=== PATIENT | male | born 2000 | race Caucasian/White ===

== ENCOUNTER 2020-03-11 12:34 | Outpatient (REF) | payer MEDICAID, SELFPAY ==
--- NOTE | 2020-03-11 12:44 | XR_ITS ---
EXAMINATION: THORACIC AND LUMBAR SPINE. CLINICAL INFORMATION: Back pain. COMPARISON: Lumbar spine 12/20/2018 TECHNIQUE: 3 views dorsal spine and 5 views of lumbar spine. FINDINGS: DORSAL SPINE: There is maintained thoracic kyphosis. The vertebral heights, alignment and disc heights are normal. There is no visible acute fracture, dislocation or subluxation. The para vertebral soft tissues are normal. LUMBAR SPINE: There is normal lumbar lordosis. The vertebral heights, alignment and disc heights are normal. There is is no subluxation seen on flexion-extension views. There is no visible acute fracture, dislocation or lytic process seen. The soft tissues are normal. XR/XR lumbar spine 6V w bending IMPRESSION: Unremarkable dorsal spine exam. No acute fracture or dislocation. No subluxation seen on flexion-extension views.
--- NOTE | 2020-03-11 12:44 | XR_ITS ---
EXAMINATION: THORACIC AND LUMBAR SPINE. CLINICAL INFORMATION: Back pain. COMPARISON: Lumbar spine 12/20/2018 TECHNIQUE: 3 views dorsal spine and 5 views of lumbar spine. FINDINGS: DORSAL SPINE: There is maintained thoracic kyphosis. The vertebral heights, alignment and disc heights are normal. There is no visible acute fracture, dislocation or subluxation. The para vertebral soft tissues are normal. LUMBAR SPINE: There is normal lumbar lordosis. The vertebral heights, alignment and disc heights are normal. There is is no subluxation seen on flexion-extension views. There is no visible acute fracture, dislocation or lytic process seen. The soft tissues are normal. XR/XR thoracic spine 2V IMPRESSION: Unremarkable dorsal spine exam. No acute fracture or dislocation. No subluxation seen on flexion-extension views.
== END 2020-03-11 12:35 | disposition home or self-care (01) ==
LOC: HO.XRAY 12:34
PROVIDERS: Visit Provider Physician Assistant Medical
DX: M54.5 Low back pain (principal); M54.6 Pain in thoracic spine
CPT/HCPCS: 72070; 72114

== ENCOUNTER 2020-06-17 09:30 | Outpatient (REF) | payer MEDICAID, SELFPAY ==
[2020-06-17 09:52] LABS: COVID-19 Test Positive (Negative); IDNOW Serial# 55D5AD1C
== END 2020-06-17 09:31 | disposition home or self-care (01) ==
LOC: HO.LAB 09:30
PROVIDERS: Visit Provider Internal Medicine
DX: Z20.822 Contact with and (suspected) exposure to COVID-19 (principal)
CPT/HCPCS: 36415; 87635; C9803

== ENCOUNTER 2020-06-24 12:13 | Outpatient (REF) | payer MEDICAID, SELFPAY ==
[2020-06-24 12:36] LABS: COVID-19 Test Positive (Negative)
== END 2020-06-24 12:14 | disposition home or self-care (01) ==
LOC: HO.LAB 12:13
PROVIDERS: Visit Provider Internal Medicine
DX: Z20.822 Contact with and (suspected) exposure to COVID-19 (principal)
CPT/HCPCS: 36415; 87635; C9803

== ENCOUNTER 2021-06-26 10:32 | Emergency (ER) | payer MEDICAID, SELFPAY ==
--- NOTE | ~2021-06-26 | XR_ITS ---
EXAMINATION: XR LUMBOSACRAL SPINE CLINICAL INFORMATION: Low back pain after heavy lifting at work. COMPARISON: Lumbar spine radiographs dated 12/20/2018. TECHNIQUE: Three views of the lumbosacral spine. FINDINGS: The vertebral bodies and posterior elements are normal. The disc spaces are preserved and the vertebral alignment is normal. The paraspinal soft tissues are normal. XR/XR lumbar spine 2-3V IMPRESSION: Unremarkable lumbar spine.
--- NOTE | ~2021-06-26 | XR_ITS ---
EXAMINATION: XR RIBS, LEFT CLINICAL INFORMATION: Left rib pain status post lifting injury. COMPARISON: 12/13/2018 chest radiograph. TECHNIQUE: 3 views of the left ribs were obtained along with a PA view of the chest. A skin marker overlies the left eighth rib. FINDINGS: Lungs are clear. No consolidation, pneumothorax, or pleural effusion. The cardiomediastinal silhouette and pulmonary vasculature are normal. Osseous structures are unremarkable. Ribs are intact. No fractures are identified. XR/XR ribs LT min 3V w CXR1V IMPRESSION: Unremarkable examination.
[2021-06-26 10:38] VITALS: BP 127/67; PULSE 71; RESP 18; TEMP 36.6; O2SAT 99; BMI 21.7
[2021-06-26] MEDS: Cyclobenzaprine HCl 10 MG TABLET PO (10:52)
[2021-06-26] MEDS: NaPROXEN 500 MG TABLET PO (10:52)
--- NOTE | 2021-06-26 11:44 | ED.BACK ---
HPI - Back Pain/Injury General Chief Complaint: Back Pain/Injury Stated Complaint: Back pain/work inj Time Seen by Provider: 06/26/21 10:43 Source: patient and family (Significant other) Mode of arrival: ambulatory Limitations: language barrier (Citizen [place]-speaking) History of Present Illness HPI Narrative: 20-year-old male who is Citizen [place]speaking presenting to the ED with his significant other at bedside with complaints of upper to lower back pain/left-sided rib cage pain after he was heavy lifting boxes of salami while he was at work yesterday. He denies any actual fall. He denies any other injuries complaints or concerns at this time. MD elicited complaint: back pain, back injury and other (Left rib cage pain/injury) Pertinent past history: recent trauma (Heavy lifting at work) Onset (ago): day(s) (Started yesterday while at work) Timing: constant and progressively worsening Severity: moderate Similar Symptoms Previously: No Quality: aching and spasming Location: lumbar spine, thoracic spine and left upper back (Rib cage aspect) Radiation: none Exacerbating factors: movement, walking, deep breaths, coughing/sneezing and lifting Relieving factors: none Context: while lifting and turning/twisting Associated symptoms: denies other symptoms Work related injury: Yes Related Data Previous Rx's Medication Instructions Recorded cyclobenzaprine 10 mg tablet 10 mg PO Q8H PRN #14 tab 06/26/21 naproxen 500 mg tablet 500 mg PO BID PRN #14 tab 06/26/21 Allergies Allergy/AdvReac Type Severity Reaction Status Date / Time No Known Allergies Allergy Unverified 11/08/19 18:59 [No Known Allergies*] Review of Systems Review of Systems: Constitutional : No trauma, No Weight loss, No Fever, No Chills, ENT/Mouth : No Hearing loss, No Ear Pain, No Nasal Congestion, No Sinus Pain, No Hoarseness, No sore throat, No Rhinorrhea, No Swallowing Difficulty Cardiovascular : No Chest Pain, No SOB Respiratory : No Cough, No Dyspnea Gastrointestinal : No Nausea, No Vomiting, No Diarrhea, No abdominal Pain, No Hematochezia, No Melena Genitourinary : No Dysuria, No Urinary Frequency, No Hematuria, No Urinary or Bowel Incontinence/retention Musculoskeletal : + Back/left rib cage pain, No neck pain, No joint stiffness, No joint swelling Skin : No Skin Lesions, No rash or signs of infection Neuro : No Weakness, No radiation, No Numbness, No Paresthesias, No headache, no loss of bowel or bladder incontinence, no saddle anesthesia, Focal weakness, No radiation Denies history of IV drug usage. Yes all other systems are reviewed and are negative [facility] Past Medical History Attestation statement: The following information was validated with the patient. Medical History No known health problems Social History Social History Advance Directives: No Advance Directives Information Provided: Yes Physical Exam Vital Signs: Vital Signs: Last Vital Signs Temp 98 F 06/26/21 10:38 Pulse 71 06/26/21 10:38 Resp 18 06/26/21 10:38 BP 127/67 06/26/21 10:38 Pulse Ox 99 06/26/21 10:38 BMI result Body Mass Index 21.7 vital signs have been reviewed as normal and appeared to be correct. Blood pressure normal. Heart rate normal. Respiration rate normal. Temperature normal. Oxygen saturation normal. Appearance: Alert. Oriented X3. No acute distress. Head: Normal external exam. Normocephalic. Atraumatic. No Vaughan signs noted. No raccoon eyes noted Eyes: PERRLA. EOMI. Conjunctiva and sclera normal. Eyelids normal. ENT: EAC normal. TM's Normal. Pharynx normal. Uvula midline. Moist mucous membranes. No trismus noted. No drooling noted. No muffled voice noted. Neck: Normal inspection. Neck supple. FROM. No adenopathy. Thyroid Normal. No meningeal signs. No neck mass noted. CVS: Normal heart rate and rhythm. Heart sound normal. No murmurs noted. Pulses normal throughout. Respiratory: No respiratory distress. Painless inspiration. Breath sounds normal. No wheezes/rales/rhonchi noted. Chest tenderness to palpation to the left lateral/posterior rib cage. No signs of trauma noted. Not consistent with flail chest. No crepitus is noted. No rashes are noted. No accessory muscle usage noted or decreased air movement noted. Abdomen: Soft and nontender. Bowel sounds normal in all 4 quadrants. No distention noted. No organomegaly noted. No visible injury noted. Back: No CVA tenderness. Full range of motion noted. No obvious deformities, or edema. Mild para-spinal muscular tenderness from thoracic to lumbar region to coccyx. Full ROM in back and lower extremities. 5/5 strength hip extension/flexion, abduction, adduction. Mild Lumbar pain with hip flexion against resistance. Straight leg raise test negative on right; Straight leg raise test negative on left; Reflexes normal ankle and knee bilaterally; EHL motor strength normal bilaterally. No rashes/lesion/induration/fluctuance or signs infection noted. Skin: Skin warm and dry. Normal skin color. Normal skin turgor. No rashes/lesions/lacerations noted. Extremities: Extremities exhibit normal range of motion. Extremities nontender. Neuro: Oriented X 3. No motor deficit. No sensory deficit. Reflexes normal. Patient has a normal steady gait. Course Course Course Narrative: Pt c likely muscular pain, but could be herniated disc. Neuro exam shows no deficits. Not c/w AAA/epidural abscess/dissection.No high risk Hx (Incont, fever, immunosupp, recent surgery/LP, coag, signif trauma, wt loss, puls mass, hx/o Ca, TB, or IVDU) to warrant MRI/CT today. Not c/w Pyelo/UTI/kidney stone/spinal fx. Not cauda equina syndrome. I do not believe any imaging is indicated although patient requesting x-rays therefore x-ray of left ribs/lumbar spine ordered at this time. If negative will DC home with symptomatic treatment instructions return if any new or worsening symptoms to follow up with PCP/[facility]. Patient understands agrees with this plan. MDM - Back Pain/Injury Medical Records Attestation: I reviewed the patient's medical records. Imaging Data Lumbar spine and rib/PA chest x-ray: Attestation: I personally reviewed and interpreted this imaging study as follows: Radiologist's impression: FINDINGS: The vertebral bodies and posterior elements are normal. The disc spaces are preserved and the vertebral alignment is normal. The paraspinal soft tissues are normal. XR/XR lumbar spine 2-3V IMPRESSION: Unremarkable lumbar spine. FINDINGS: Lungs are clear. No consolidation, pneumothorax, or pleural effusion. The cardiomediastinal silhouette and pulmonary vasculature are normal. Osseous structures are unremarkable. Ribs are intact. No fractures are identified. XR/XR ribs LT min 3V w CXR1V IMPRESSION: Unremarkable examination. Discharge Plan Discharge Clinical Impression: Strain of lumbar region, Thoracic back pain, Chest wall muscle strain, Encounter for assessment of work-related causation of injury Patient Disposition: Home, Self-Care Instructions: Muscle Strain (DC), Return to Work Instructions (ED) Prescriptions: New naproxen 500 mg tablet 500 mg PO BID PRN (Reason: pain) Qty: 14 0RF cyclobenzaprine 10 mg tablet 10 mg PO Q8H PRN (Reason: Muscle spasm) Qty: 14 0RF Referrals: [facility] [Provider Group] - [facility] day Center[facility] [Primary Care Provider] - Stand Alone Forms: Work/School Release Print Language: Citizen [place]
== END 2021-06-26 16:49 | disposition home or self-care (01) ==
PROVIDERS: Emergency Provider Emergency Medicine Emergency Medical Services
DX: S39.012A Strain of muscle, fascia and tendon of lower back, initial encounter (principal); S29.011A Strain of muscle and tendon of front wall of thorax, initial encounter; M54.6 Pain in thoracic spine; X50.0XXA Overexertion from strenuous movement or load, initial encounter; Y93.9 Activity, unspecified; Y92.89 Other specified places as the place of occurrence of the external cause; Y99.0 Civilian activity done for income or pay
CPT/HCPCS: 71101; 72100; 99283; 99284

== ENCOUNTER 2021-09-25 13:09 | Emergency (ER) | payer MEDICAID, SELFPAY ==
--- NOTE | ~2021-09-25 | CT_ITS ---
EXAMINATION: CT LUMBAR SPINE WITHOUT CONTRAST CLINICAL INFORMATION: Low back pain status post lifting injury at work. COMPARISON: Lumbar spine radiographs dated 06/26/2021. TECHNIQUE: Multiple axial images of the lumbar spine were obtained without the administration of intravenous contrast. Coronal and sagittal reformatted images were obtained. This CT examination was performed using dose optimization techniques as appropriate, variously including the following: *Automated exposure control *Adjustment of mA and/or kV according to patient size (this includes techniques or standardized protocols for targeted exams where dose is matched to indication/reason for exam; i.e. extremities or head) *Use of iterative reconstruction technique DLP; 331 mGy-cm FINDINGS: There is normal lumbar lordosis and spinal alignment. The vertebral bodies and intervertebral disc spaces are unremarkable. There is no acute fracture. The neural foramina are patent. The facet joints are unremarkable. The spinous processes are intact. The visualized lung bases are clear. No significant intra-abdominal/pelvic abnormality. CT/CT lumbar spine wo con IMPRESSION: Unremarkable lumbar spine.
[2021-09-25 13:54] VITALS: BP 127/70; PULSE 70; RESP 16; TEMP 36.7; O2SAT 99; BMI 21.9
[2021-09-25] MEDS: predniSONE 20 MG TABLET 40 MG PO (14:39)
[2021-09-25] MEDS: NaPROXEN 500 MG TABLET PO (14:39)
--- NOTE | 2021-09-25 15:12 | ED_ITS ---
HPI - Back Pain/Injury General Chief Complaint: Back Pain/Injury Stated Complaint: Back pain Time Seen by Provider: 09/25/21 14:32 Source: patient Mode of arrival: ambulatory Limitations: no limitations History of Present Illness HPI Narrative: 20-year-old male who is [place]-speaking presenting to the ED with lower back pain radiating to his left leg for the past few days since Tuesday after he was at work lifting meat. 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 He reports he had x-rays and they told him that was all musculature and he was prescribed naproxen and muscle relaxers although he has been taking that and no symptomatic relief. He reports that on Tuesday he was also lifting a salami and it slipped and he has been having pain to his lower back radiating to his left lower leg. Reports he has been using naproxen Flexeril and a back brace and no symptomatic relief. He denies any recent falls injuries, fevers, chills, neck pain/injury, paresthesias, chest pain or shortness of breath, focal weakness, lower extremity edema or calf tenderness, urinary or bowel incontinence or retention, rashes, saddle anesthesia, hematuria, dysuria, abdominal pain, nausea vomiting or any other symptoms complaints concerns or injuries at this time. MD elicited complaint: back pain and back injury Pertinent past history: prior back pain Onset (ago): day(s) (5) Timing: constant and progressively worsening Severity: moderate Similar Symptoms Previously: Yes Quality: sharp, aching, spasming and throbbing Location: lumbar spine Radiation: left leg below the knee Exacerbating factors: sitting upright, walking, coughing/sneezing and lifting Relieving factors: none Context: while lifting and turning/twisting Associated symptoms: denies other symptoms Work related injury: Yes Related Data Previous Rx's Medication Instructions Recorded cyclobenzaprine 10 mg tablet 10 mg PO Q8H PRN Muscle spasm #14 06/26/21 tabs naproxen 500 mg tablet 500 mg PO BID PRN pain #14 tabs 06/26/21 acetaminophen 500 mg tablet 1,000 mg PO QID PRN fever or pain 09/25/21 (Tylenol Extra Strength) #14 tabs cyclobenzaprine 10 mg tablet 10 mg PO Q8H PRN Muscle spasm #14 09/25/21 tabs naproxen 500 mg tablet 500 mg PO BID PRN pain #10 tabs 09/25/21 oxycodone 5 mg tablet 5 mg PO Q6H PRN pain #14 tabs 09/25/21 prednisone 20 mg tablet 40 mg PO DAILY rash 5 days #10 tabs 09/25/21 Allergies Allergy/AdvReac Type Severity Reaction Status Date / Time No Known Allergies Allergy Verified 09/25/21 13:54 [No Known Allergies*] Review of Systems Review of Systems: Constitutional : No trauma, No Weight loss, No Fever, No Chills, ENT/Mouth : No Hearing loss, No Ear Pain, No Nasal Congestion, No Sinus Pain, No Hoarseness, No sore throat, No Rhinorrhea, No Swallowing Difficulty Cardiovascular : No Chest Pain, No SOB Respiratory : No Cough, No Dyspnea Gastrointestinal : No Nausea, No Vomiting, No Diarrhea, No abdominal Pain, No Hematochezia, No Melena Genitourinary : No Dysuria, No Urinary Frequency, No Hematuria, No Urinary or Bowel Incontinence/retention Musculoskeletal : + Back pain, No neck pain, No joint stiffness, No joint swelling Skin : No Skin Lesions, No rash or signs of infection Neuro : No Weakness, + radiation, No Numbness, No Paresthesias, No headache, no loss of bowel or bladder incontinence, no saddle anesthesia, Focal weakness Denies history of IV drug usage. Yes all other systems are reviewed and are negative PMFSH Past Medical History Attestation statement: The following information was validated with the patient. Source: old records reviewed and nursing notes reviewed Medical History No known health problems Social History Social History Advance Directives: No Advance Directives Information Provided: No Physical Exam Vital Signs: Vital Signs: Last Vital Signs Temp 98.3 F 09/25/21 15:45 Pulse 54 09/25/21 15:45 Resp 16 09/25/21 15:45 BP 114/63 09/25/21 15:45 Pulse Ox 99 09/25/21 15:45 O2 Del Method 09/25/21 15:45 BMI result Body Mass Index 21.9 vital signs have been reviewed as normal and appeared to be correct. Blood pressure normal. Heart rate normal. Respiration rate normal. Temperature normal. Oxygen saturation normal. Appearance: Alert. Oriented X3. No acute distress. Head: Normal external exam. Normocephalic. Atraumatic. Eyes: PERRLA. EOMI. Conjunctiva and sclera normal. Eyelids normal. ENT: Pharynx normal. Uvula midline. Moist mucous membranes. No trismus noted. No drooling noted. No muffled voice noted. Neck: Normal inspection. Neck supple. FROM. No adenopathy. Thyroid Normal. No meningeal signs. No neck mass noted. CVS: Normal heart rate and rhythm. Heart sound normal. No murmurs noted. Pulses normal throughout. Respiratory: No respiratory distress. Painless inspiration. Breath sounds normal. No wheezes/rales/rhonchi noted. Chest nontender. No accessory muscle usage noted or decreased air movement noted. Abdomen: Soft and nontender. Bowel sounds normal in all 4 quadrants. No distention noted. No organomegaly noted. No visible injury noted. Back: No CVA tenderness. Full range of motion noted. No obvious deformities, or edema. Mild para-spinal muscular tenderness from lumbar region to coccyx. Full ROM in back and lower extremities. 5/5 strength hip extension/flexion, abduction, adduction. Mild Lumbar pain with hip flexion against resistance. Straight leg raise test negative on right; Straight leg raise test negative on left; Reflexes normal ankle and knee bilaterally; EHL motor strength normal bilaterally. No rashes/lesion/induration/fluctuance or signs infection noted. Skin: Skin warm and dry. Normal skin color. Normal skin turgor. No rashes/lesions/lacerations noted. Extremities: No lower extremity edema. No calf tenderness noted. Extremities exhibit normal range of motion. Extremities nontender. Neuro: Oriented X 3. No motor deficit. No sensory deficit. Reflexes normal. Patient has a normal steady gait. Course Course Course Narrative: 14:40pm - Pt c likely muscular pain, but could be herniated disc. Neuro exam shows no deficits. Not c/w AAA/epidural abscess/dissection.No high risk Hx (Incont, fever, immunosupp, recent surgery/LP, coag, signif trauma, wt loss, puls mass, hx/o Ca, TB, or IVDU) to warrant MRI today. Not c/w Pyelo/UTI/kidney stone. Not cauda equina syndrome. Will obtain a CT scan of lumbar spine to evaluate for possible fractures or any other acute processes and treat symptomatically and re-evaluate. Reevaluation(s) Reevaluation #1: CT scan of lumbar spine negative for any acute processes patient most likely muscular skeletal pain. Will DC home with symptomatic treatment drugs return if any new or worsening symptoms to follow up with [facility] for his job. Patient understands agrees with this plan. Time: 16:35 MDM - Back Pain/Injury Medical Records Attestation: I reviewed the patient's medical records. Imaging Data CT scan of lumbar spine without contrast: Attestation: I personally reviewed and interpreted this imaging study as follows: Radiologist's impression: FINDINGS: There is normal lumbar lordosis and spinal alignment. The vertebral bodies and intervertebral disc spaces are unremarkable. There is no acute fracture. The neural foramina are patent. The facet joints are unremarkable. The spinous processes are intact. The visualized lung bases are clear. No significant intra-abdominal/pelvic abnormality. CT/CT lumbar spine wo con IMPRESSION: Unremarkable lumbar spine. Discharge Plan Discharge Clinical Impression: Strain of lumbar region, Work related injury Patient Disposition: Home, Self-Care Instructions: Low Back Strain (ED), Return to Work Instructions (ED), Lower Back Exercises (ED) Prescriptions: New cyclobenzaprine 10 mg tablet 10 mg PO Q8H PRN (Reason: Muscle spasm) Qty: 14 0RF prednisone 20 mg tablet 40 mg PO DAILY 5 Days Qty: 10 0RF acetaminophen [Tylenol Extra Strength] 500 mg tablet 1,000 mg PO QID PRN (Reason: fever or pain) Qty: 14 0RF naproxen 500 mg tablet 500 mg PO BID PRN (Reason: pain) Qty: 10 0RF oxycodone 5 mg tablet 5 mg PO Q6H PRN (Reason: pain) Qty: 14 0RF Rx Instructions: Partial Fill upon patient request. No Action naproxen 500 mg tablet 500 mg PO BID PRN (Reason: pain) Qty: 14 0RF cyclobenzaprine 10 mg tablet 10 mg PO Q8H PRN (Reason: Muscle spasm) Qty: 14 0RF Referrals: [facility] [Primary Care Provider] - 5 days Stand Alone Forms: Work/School Release Print Language: [place]
[2021-09-25 15:45] VITALS: BP 114/63; PULSE 54; RESP 16; TEMP 36.8; O2SAT 99
== END 2021-09-25 16:49 | disposition home or self-care (01) ==
PROVIDERS: Emergency Provider Emergency Medicine
DX: S39.012A Strain of muscle, fascia and tendon of lower back, initial encounter (principal); X50.0XXA Overexertion from strenuous movement or load, initial encounter; X50.3XXA Overexertion from repetitive movements, initial encounter; Y93.9 Activity, unspecified; Y92.9 Unspecified place or not applicable; Y99.0 Civilian activity done for income or pay
CPT/HCPCS: 72131; 99284

== ENCOUNTER 2023-05-02 11:48 | Emergency (ER) | payer MEDICAID, SELFPAY ==
[2023-05-02 11:56] VITALS: BP 110/65; PULSE 105; RESP 19; TEMP 36.6; O2SAT 100; BMI 18.8
--- NOTE | 2023-05-02 12:03 | ED_ITS ---
HPI - General Adult General Chief complaint: General Medical Stated complaint: dehydrated, body aches, fever Time Seen by Provider: 05/02/23 13:53 Source: patient Mode of arrival: ambulatory Limitations: no limitations History of Present Illness HPI narrative: 22 yold male with no pmh presents to the ED for worsening symptoms of tonsillitits. Patient states throat pain, fever, bodyaches, and decreased PO for 5 days since diagnosed with tonstillitis at [facility]. patient presently taking pencillin as prescribed. patient denies any chest pain, shortness of breath, neck swelling, drooling, or recent dental work. Related Data Previous Rx's Medication Instructions Recorded cyclobenzaprine 10 mg tablet 10 mg PO Q8H PRN Muscle spasm #14 06/26/21 tabs naproxen 500 mg tablet 500 mg PO BID PRN pain #14 tabs 06/26/21 acetaminophen 500 mg tablet 1,000 mg (2 x 500 mg) PO QID PRN 09/25/21 (Tylenol Extra Strength) fever or pain #14 tabs cyclobenzaprine 10 mg tablet 10 mg PO Q8H PRN Muscle spasm #14 09/25/21 tabs naproxen 500 mg tablet 500 mg PO BID PRN pain #10 tabs 09/25/21 oxycodone 5 mg tablet 5 mg PO Q6H PRN pain #14 tabs 09/25/21 prednisone 20 mg tablet 40 mg (2 x 20 mg) PO DAILY rash 5 09/25/21 days #10 tabs lidocaine HCl 2 % mucosal solution 15 ml mucous membrane TID PRN pain 05/02/23 3 days #100 mL prednisone 20 mg tablet 40 mg (2 x 20 mg) PO DAILY 5 days 05/02/23 #10 tabs Allergies Allergy/AdvReac Type Severity Reaction Status Date / Time No Known Allergies Allergy Verified 09/25/21 13:54 [No Known Allergies*] Review of Systems 2 Review of Systems: sore throat, fever, chills, bodyaches Yes all other systems are reviewed and are negative PMFSH Past Medical History Medical History No known health problems Social History Social History Advance Directives: No Advance Directives Information Provided: No Physical Exam ED Vital Signs: Vital Signs - 24 hr 05/02/23 11:56 Temperature 98 F Pulse Rate 105 H Respiratory Rate 19 Blood Pressure 110/65 Pulse Oximetry 100 Oxygen Delivery Method Room Air BMI result Body Mass Index 18.8 Const General: cooperative, healthy appearing, comfortable, no acute distress, well developed, alert and awake Orientation/consciousness: patient oriented x3 HENMT Other: Negative for signs of peritonsillar abscess. negative for drooling, change in voice, or trisums. Negative for neck swelling or facial swelling. Head: Yes normal to inspection, Yes No palpable skull fracture present, Yes normocephalic and Yes atraumatic Ears: hearing grossly normal bilaterally, external ears normal, TM's normal bilaterally, TM normal on the right, TM normal on the left, EAC's normal, mastoids normal and no periauricular adenopathy Throat: Yes abnormal tonsil (bilateral tonsilar exduates. ) Eyes General: appearance normal, both eyes and all related structures Neck Neck: Yes normal visual inspection, Yes full ROM, Yes no lymphadenopathy, Yes no meningeal signs, Yes trachea midline, Yes supple, No anterior neck swelling and No tender Chest Chest palpation & inspection: normal inspection of the chest and normal palpation of entire chest wall Resp Effort & Inspection: normal respiratory effort and able to speak in complete sentences Auscultation: clear to auscultation bilaterally Cardio Jugular venous distension: no JVD Heart sounds: S1 normal heart sound present and S2 normal heart sound present GI Inspection: Yes normal to inspection Palpation (GI): Soft to palpation, not firm, nontender, no guarding and not rigid General: Yes no CVA tenderness Back/Spine/Pelvis Back: no CVA tenderness and No back tenderness Skin General skin exam: no rashes or lesions noted, elasticity normal and turgor normal Neuro General: patient oriented x3, gait normal, tone normal, moves all extremities, Normal light touch and pain sensation, no meningeal signs, no focal motor deficits and CN's II-XI intact bilaterally Extrem General: Yes normal to inspection and Yes full ROM Psych Appearance: grossly normal, well kempt and not disheveled Course Course Course Narrative: RME: 22 yold male recently diagnosed with tonstillitits on penV presents to the ED for sore throat and unable to eat liquids. patient states throat pain. patient states seen at [facility] and tested negative for strep. Physical exam positive for bilateral exudates on tonsils. negative for signs of peritonsillar abscess. Speaking clearly and negative ok drooling. labs ordered and monospot Medical Decision Making Medical Decision Making [facility] Narrative: 22 yold with tonsillitis. labs normal. Patient tested negative for strep at [facility] as per patient. patient is not in idistress. PO challenge pased. informed to continue to take antibiotics. Not suspecting prabhu angina, retropharyngeal abscess, or peritonsillar abscess. Differential Diagnosis Differential Diagnoses: The differential diagnosis associated with the presentation includes (Strep, mono) Admission/Observation Consideration of admission/observation: Escalation of care including admission/observation considered Lab Data [facility] Lab Attestation statement: I reviewed the patient's lab results. 05/02/23 13:03 05/02/23 13:03 Labs: Lab Results 05/02/23 Range/Units 13:03 WBC 5.0 (4.8-10.8) X10*3/uL RBC 5.41 (4.60-5.80) X10*6/uL Hgb 16.1 (14.0-18.0) g/dl Hct 45.2 (42.0-52.0) % MCV 83.5 (80.0-98.0) fL MCH 29.8 (27.0-33.0) pg MCHC 35.6 (31.0-36.0) g/dl RDW 12.6 (11.0-16.0) % Plt Count 206 (160-400) X10*3/uL MPV 10.0 (9.4-12.4) fL Immature Gran % (Auto) 0.4 (0.0-0.4) % Neut % (Auto) 55.8 (45-73) % Lymph % (Auto) 23.8 (20-40) % Appling % (Auto) 19.6 H (2-11) % Eos % (Auto) 0.0 (0-4) % Baso % (Auto) 0.4 (0-2) % Lymph # (Auto) 1.2 (1.2-4.9) X10*3/uL Appling # (Auto) 1.0 (0.1-1.2) X10*3/uL Eos # (Auto) 0.0 (0.0-0.4) X10*3/uL Baso # (Auto) 0.0 (0.0-0.2) X10*3/uL Abs Immat Gran (auto) 0.02 (0.00-0.03) X10*3/uL Absolute Neuts (auto) 2.8 (2.0-8.3) x10*3/uL Absolute Nucleated RBC 0.000 (0.0-0.012) X10*3/uL Nucleated RBC % (auto) 0.0 (0.0-0.2) /100WBC Smear Tech's Comments VERIFIED Sodium 134 L (135-145) mmol/L Potassium 3.9 (3.3-5.1) mmol/L Chloride 99 (96-108) mmol/L Carbon Dioxide 26 (22-29) mmol/L Anion Gap 13 (12-20) BUN 16 (9-16) mg/dL Creatinine 1.15 (0.5-1.4) mg/dL Estim Creat Clear Calc 86.9 Estimated GFR > 60 Random Glucose 94 (60-115) mg/dL Calcium 9.2 (8.4-10.2) mg/dL Total Bilirubin 0.4 (0.0-1.0) mg/dL AST 32 (5-37) U/L ALT 37 (0-40) U/L Alkaline Phosphatase 48 (39-117) U/L Total Protein 8.9 H (6.5-8.0) g/dL Albumin 4.4 (3.5-5.0) g/dL Monoscreen Negative (Negative) Independent Historian Clinical information obtained from an independent historian. History obtained from or confirmed by: Other (patient) Prescription Management I considered prescription management with: Other (steroid, viscous lidocaine) Discharge Plan Discharge Clinical Impression: Acute tonsillitis Patient Disposition: Home, Self-Care Instructions: Tonsillitis (ED) Additional Instructions: Recomendar seguimiento con wade proveedor de atenci?n primaria. Regrese al servicio de urgencias de inmediato si babea, cambia la voz, dolor en el pecho, dificultad para respirar, hinchaz?n del cindy, incapacidad para tolerar alimentos s?lidos/l?quidos, fiebre intratable, escalofr?os, dolor en el pecho, dificultad para respirar, debilidad o cualquier otro s?ntoma preocupante. Contin?e tomando antibi?ticos seg?n lo recetado. Prescriptions: New prednisone 20 mg tablet 40 mg PO DAILY 5 Days Qty: 10 0RF lidocaine HCl 2 % solution 15 ml mucous membrane TID PRN (Reason: pain) 3 Days Qty: 100 0RF Rx Instructions: oral. swish and spit. viscous lidocaine No Action naproxen 500 mg tablet 500 mg PO BID PRN (Reason: pain) Qty: 14 0RF cyclobenzaprine 10 mg tablet 10 mg PO Q8H PRN (Reason: Muscle spasm) Qty: 14 0RF cyclobenzaprine 10 mg tablet 10 mg PO Q8H PRN (Reason: Muscle spasm) Qty: 14 0RF prednisone 20 mg tablet 40 mg PO DAILY 5 Days Qty: 10 0RF acetaminophen [Tylenol Extra Strength] 500 mg tablet 1,000 mg PO QID PRN (Reason: fever or pain) Qty: 14 0RF naproxen 500 mg tablet 500 mg PO BID PRN (Reason: pain) Qty: 10 0RF oxycodone 5 mg tablet 5 mg PO Q6H PRN (Reason: pain) Qty: 14 0RF Rx Instructions: Partial Fill upon patient request. Stand Alone Forms: Work/School Release Interventions: ED Discharge Assessment Last Done: 05/02/23 14:15 Discharge Date/Time: 05/02/23 14:15 Print Language: [place]
[2023-05-02 13:21] LABS: Basophils Percent Auto 0.4 % (0-2); Hematocrit 45.2 % (42.0-52.0); Hemoglobin 16.1 g/dl (14.0-18.0); Imm Gran Abs Auto 0.02 X10*3/uL (0.00-0.03); Imm Gran Pct Auto 0.4 % (0.0-0.4); Lymphocytes Absolute Auto 1.2 X10*3/uL (1.2-4.9); Lymphocytes Percent Auto 23.8 % (20-40); MANUAL DIFF FLAG SCAN; Mean Corpuscular HGB Conc 35.6 g/dl (31.0-36.0); Mean Corpuscular Hemoglobin 29.8 pg (27.0-33.0); Mean Corpuscular Volume 83.5 fL (80.0-98.0); Monocytes Percent Auto 19.6 % (2-11); Neutrophils Absolute Auto 2.8 x10*3/uL (2.0-8.3); Neutrophils Percent Auto 55.8 % (45-73); Platelet Count 206 X10*3/uL (160-400); Red Blood Count 5.41 X10*6/uL (4.60-5.80); Red Cell Distribution Width 12.6 % (11.0-16.0); SCAN SMEAR FLAG 1
[2023-05-02 13:25] LABS: Alanine Aminotransferase 37 U/L (0-40); Albumin Level 4.4 g/dL (3.5-5.0); Alkaline Phosphatase 48 U/L (39-117); Anion Gap 13 (12-20); Aspartate Amino Transferase 32 U/L (5-37); Bilirubin Total 0.4 mg/dL (0.0-1.0); Blood Urea Nitrogen 16 mg/dL (9-16); Calcium 9.2 mg/dL (8.4-10.2); Carbon Dioxide 26 mmol/L (22-29); Chloride 99 mmol/L (96-108); Creatinine Clr Calc Pharmacy 86.9; Estimated Glomerular Filt Rate > 60; Glucose Random 94 mg/dL (60-115); Potassium 3.9 mmol/L (3.3-5.1); Sodium 134 mmol/L (135-145); Total Protein 8.9 g/dL (6.5-8.0)
[2023-05-02 13:33] LABS: Monotest Negative (Negative)
[2023-05-02 13:46] LABS: SLIDE REVIEW VERIFIED
== END 2023-05-02 14:15 | disposition home or self-care (01) ==
PROVIDERS: Physician Assistant; Emergency Provider Emergency Medicine
DX: J03.90 Acute tonsillitis, unspecified (principal)
CPT/HCPCS: 36415; 80053; 85025; 86308; 99282; 99283